=== PATIENT | female | born 1990 | race Caucasian/White ===

== ENCOUNTER 2023-07-23 18:52 | Emergency (ER) | payer OTHER, SELFPAY ==
[2023-07-23 19:23] VITALS: BP 130/93; PULSE 81; RESP 21; TEMP 37.3; O2SAT 100
--- NOTE | 2023-07-23 20:23 | ED.GENADUL_ITS ---
Discharge Plan Disposition Patient Disposition: Home Condition: Stable Discharge Details Clinical Impression: Pain at surgical site, Wound infection Primary Care Provider: Gaby,Local ED Provider: Donnie Blum Home Meds and New Rx's Prescriptions: New clindamycin HCl 150 mg capsule 450 mg PO TID 7 Days Qty: 63 0RF Discharge Instructions Instructions: Wound Infection (ED) Additional Instructions: call your athletics director's office Wednesday if you feel more ill or have severe worsening pain or high fevers return to the emergency department Medical Decision Making 32 yo female with no chronic medical problems comes in with cc of right foot pain. She had a mass removed from her right plantar foot 10 days ago by a athletics director in [facility], who comes in with chief complaint of pain and drainage out of the wound. Denies fevers, has been strictly non weight bearing with crutches since surgery per patient at recommendation of her athletics director. She appears well in no distress. She has a 3cm closed surgical wound on the mid plantar surface. She has no erythema or drainage currently, she states it was dark appearing discharge earlier. No leg swelling, full rom and intact sensation. I suspect she had a hematoma that drained but given the increased pain will treat for possible wound infection with clindamycin. Advised to call her athletics director's office Wednesday and return precautions given Differential Diagnosis Differential Diagnosis: hematoma, wound infection HPI General Mode of arrival: ambulatory . Date/Time Provider Initiated Documentation: 07/23/23 19:16 . Limitations to Documentation: no limitations . Information obtained by: patient . History of Present Illness 32 year old F presents to the emergency department with the chief complaint of right surgical site pain, described as moderate, Patient started experiencing this day(s) (3) and it has been constant. No relieving factors improve symptom(s), No exacerbating factors reported . Patient notes no other symptoms.. Patient did receive the following treatments prior to arrival, none Related Data Home Medications Medication Instructions Recorded Confirmed clindamycin HCl 150 mg capsule 450 mg PO TID 7 days #63 caps 07/23/23 Previous Rx's Medication Instructions Recorded clindamycin HCl 150 mg capsule 450 mg PO TID 7 days #63 caps 07/23/23 Allergies Allergy/AdvReac Type Severity Reaction Status Date / Time Penicillins AdvReac Severe Skin Rash Unverified 07/23/23 19:22 General Stated Complaint: Orthopedic MINDY: 4 Review of Systems All systems reviewed & are unremarkable except as noted in HPI and below Constitutional Constitutional: Denies chills, Denies fever(s) and Denies weakness Cardiovascular Cardiovascular: Denies chest pain and Denies dyspnea Respiratory Respiratory: Denies cough and Denies dyspnea Gastrointestinal Gastrointestinal: Denies abdominal pain, Denies nausea and Denies vomiting Neurologic Neurologic: Denies weakness PFSH All Active Problems (Updated 07/23/23 @ 20:33 by Donnie Blum MD) Pain at surgical site (Acute) Wound infection (Acute) Social History Smoking/Tobacco Use Status: Never Smoking risk assessment performed?: Yes Alcohol Intake: never Drug use: Never Substance use type: does not use Housing: house Do you feel safe at home: Yes Do you feel safe in your relationship?: Yes Exam Const General: no acute distress Orientation: alert HENMT Head: normal to inspection Ears: external ears normal General nose exam: external nose normal Mouth: moist mucous membranes Eyes General: appearance normal, both eyes and all related structures Neck Neck: normal visual inspection Resp Effort & Inspection: normal respiratory effort and able to speak in complete sentences Cardio Rate: regular rate Skin General skin exam: elasticity normal Neuro General: patient alert and patient oriented x3 Extrem General: full ROM and capillary refill normal Psych Mental Status: mental status grossly normal Course Vital Signs Vital signs: Vital Signs Temperature 37.3 C 07/23/23 19:23 Pulse 81 07/23/23 19:23 Respiratory Rate 21 07/23/23 19:23 Blood Pressure 130/93 H 07/23/23 19:23 Pulse Oximetry 100 07/23/23 19:23 Temperature 37.3 C 07/23/23 19:23 Temperature Source Temporal Artery Scan 07/23/23 19:23 Pulse 81 07/23/23 19:23 Respiratory Rate 21 07/23/23 19:23 Blood Pressure 130/93 H 07/23/23 19:23 Blood Pressure Position Sitting 07/23/23 19:23 Pulse Oximetry 100 07/23/23 19:23 Oxygen Delivery Method Room Air 07/23/23 19:23 Oxygen Flow Rate 0 07/23/23 19:23 Pain Level 6 07/23/23 19:23
[2023-07-23] MEDS: Fluconazole 150 MG TAB PO (20:32)
[2023-07-23] MEDS: Clindamycin 150 MG CAP 450 MG PO (20:32)
[2023-07-23 20:42] VITALS: BP 122/79; PULSE 86; RESP 17; TEMP 36.8; O2SAT 99
== END 2023-07-23 20:43 | disposition home or self-care (01) ==
PROVIDERS: Emergency Provider Emergency Medicine
DX: G89.18 Other acute postprocedural pain (principal); L08.9 Local infection of the skin and subcutaneous tissue, unspecified
CPT/HCPCS: 99283; 99284

== ENCOUNTER 2024-08-15 10:28 | Outpatient (REF) | payer BC, SELFPAY | END 2024-08-15 10:29 | disposition home or self-care (01) | LOC: LBN 10:28 | PROVIDERS: Visit Provider Physician Assistant | DX: J02.9 Acute pharyngitis, unspecified (principal); R68.89 Other general symptoms and signs; B34.9 Viral infection, unspecified | CPT/HCPCS: 87070 ==

== ENCOUNTER 2025-02-12 15:49 | Outpatient (CLI) | payer SELFPAY ==
--- NOTE | 2025-02-12 15:45 | RT.EKG_ITS ---
APPROVED REPORT Exam: Resting ECG Reason for Exam: Chest discomfort Patient Location: O HR:87 bpm ECG Measurements Heart Rate 87 AXIS NH 136 P 77 QRSd 97 QRS 75 QT 360 T 35 QTc 433 Conclusion Sinus rhythm...normal P axis, V-rate 50- 99 Probable left atrial enlargement...P >50mS, <-0.10mV V1 Otherwise normal ECG
== END 2025-02-12 15:50 | disposition home or self-care (01) ==
LOC: DI.CM 15:49
PROVIDERS: Visit Provider Nurse Practitioner Family
DX: R07.89 Other chest pain (principal)
CPT/HCPCS: 93010

== ENCOUNTER 2025-04-19 18:19 | Outpatient (REF) | payer OTHER, SELFPAY | END 2025-04-19 18:20 | disposition home or self-care (01) | LOC: LBN 18:19 | PROVIDERS: PCP Nurse Practitioner Family; Visit Provider Physician Assistant | DX: L02.91 Cutaneous abscess, unspecified (principal) | CPT/HCPCS: 87070; 87205 ==

== ENCOUNTER 2025-04-27 09:27 | Outpatient (CLI) | payer OTHER, SELFPAY ==
[2025-04-28 02:46] LABS: HBs Antibody, Quant 471.4 mIU/mL (See Note); Hepatitis B Surface Ab Positive (See Note)
[2025-04-30 11:08] LABS: Measles IgG Antibody Positive (See Note); Mumps Antibody IgG Positive (See Note); Rubella IgG Ab (UVM) Positive (See Note)
[2025-04-30 11:10] LABS: Varicella IgG Antibody Positive (See Note)
[2025-04-30 15:03] LABS: TB Interpretation Negative (Negative); TB1 Ag minus Nil 0.04 IU/mL; TB2 Ag minus Nil 0.01 IU/mL
== END 2025-04-27 09:28 | disposition home or self-care (01) ==
LOC: LBO 09:28
PROVIDERS: PCP Nurse Practitioner Family; Visit Provider Nurse Practitioner Family
DX: Z00.00 Encounter for general adult medical examination without abnormal findings (principal)
CPT/HCPCS: 36415; 86706; 86787; 86480; 86735; 86762; 86765

== ENCOUNTER 2025-05-18 01:13 | Outpatient (CLI) | payer OTHER, SELFPAY ==
[2025-05-18 12:52] LABS: HCT 44.6 % (36.0-46.0); HGB 14.2 g/dL (11.2-15.7); MCH 28.6 pg (27.0-33.0); MCHC 31.8 % (32.0-36.0); MCV 90 fL (80-95); MPV 11.6 fL (8.0-11.0); Platelet Count 171 10^3/uL (130-400); RBC 4.97 10^6/uL (3.93-5.22); RDW 12.7 % (11.7-14.6); RDW-SD 42.1 fL; WBC 6.79 10^3/uL (4.4-10.8)
[2025-05-18 13:03] LABS: ALT 28 U/L (14-59); AST 21 U/L (15-37); Alkaline Phosphatase 132 U/L (46-116); Anion Gap 9.1 mmol/L (3-11); BUN 18 mg/dL (7-18); Bilirubin, Total 0.4 mg/dL (0.2-1.0); CO2 27.9 mmol/L (21.0-32.0); CREATININE 1.2 mg/dL (0.55-1.02); Calculated LDL 90 mg/dL (<100); Chloride 106 mmol/L (98-107); Cholesterol 157 mg/dL (<200); Glucose 89 mg/dL (74-106); HDL Cholesterol 59 mg/dL (>or=50); Potassium 4.3 mmol/L (3.5-5.1); Sodium 143 mmol/L (136-145); Total Protein 7.7 g/dL (6.4-8.2); Triglyceride 40 mg/dL (<150)
== END 2025-05-18 01:14 | disposition home or self-care (01) ==
LOC: LOS 01:13
PROVIDERS: PCP Nurse Practitioner Family; Visit Provider Nurse Practitioner Family
DX: Z00.00 Encounter for general adult medical examination without abnormal findings (principal); R00.0 Tachycardia, unspecified; F17.200 Nicotine dependence, unspecified, uncomplicated
CPT/HCPCS: 36415; 80053; 80061; 85027; 84443

== ENCOUNTER 2025-05-18 08:58 | Outpatient (RCR) | payer OTHER, SELFPAY ==
--- NOTE | 2025-05-22 08:53 | W.HOLTRPT ---
Date of service: 05/22/25 Time of Service: 08:53 Holter Monitor Report Referring Provider:: Christina Hatch Indications:: Tachycardia Holter Monitor Note: Patient is a 48-hour Holter monitor Rhythm throughout was sinus with an average heart rate of 85. Minimum was 45, maximum 146 Very rare isolated atrial and ventricular ectopic beats There was no atrial fibrillation, no SVT, no high-grade AV block, no pauses greater than 3 seconds Patient's symptoms correlated to sinus rhythm, rate 87, rate 100
== END 2025-05-28 23:59 | disposition home or self-care (01) ==
LOC: CARDOPNVT 08:58
PROVIDERS: PCP Nurse Practitioner Family; Visit Provider Internal Medicine Cardiovascular Disease
DX: R00.0 Tachycardia, unspecified (principal); R07.9 Chest pain, unspecified
CPT/HCPCS: 93225; 93226

== ENCOUNTER 2025-06-05 08:50 | Outpatient (CLI) | payer OTHER, SELFPAY ==
--- NOTE | 2025-06-05 07:30 | DI.US_ITS ---
APPROVED REPORT EXAM: Comprehensive 2D, Doppler, and color-flow Echocardiogram Patient Location: Out-Patient Cleaning Technician: Felisha Parr RDCS (AE) Indications: Tachycardia, HX of drug use Other Information Study Quality: Adequate Conclusion Normal left ventricular wall thickness and chamber size. Ejection fraction is 60%. Wall motion is normal Normal right ventricular size and function Both atria are normal in size There is no structural or hemodynamically significant valvular disease Wall motion Left Ventricle The left ventricle is normal size. The left ventricular systolic function is normal. The left ventricular ejection fraction is within the normal range. There is normal left ventricular wall thickness. There is normal LV segmental wall motion. There is no ventricular septal defect visualized. LVEF is 60%. Right Ventricle The right ventricle is normal size. The right ventricular systolic function is normal. Atria The left atrium size is normal. The right atrium size is normal. The interatrial septum is intact with no evidence for an atrial septal defect. Aortic Valve The aortic valve is normal in structure. Aortic valve is trileaflet. There is no aortic valvular stenosis. No aortic regurgitation is present. Mitral Valve The mitral valve is normal in structure. No evidence of mitral valve stenosis. Trace mitral regurgitation. Tricuspid Valve The tricuspid valve is normal in structure. There is no tricuspid valve stenosis. Trace tricuspid regurgitation. Unable to assess PA pressure. Pulmonic Valve The pulmonary valve is normal in structure. There is no pulmonic valvular stenosis. There is no pulmonic valvular regurgitation. Great Vessels The aortic root is normal in size. The ascending aorta is normal in size. Aortic arch is normal in caliber. The IVC collapses <50% with inspiration. Pericardium There is no pericardial effusion. 2D Dimensions IVSD d PLAX 0.70 cm F: 0.6-1.0 Ao Root d 2.55 cm F: 2.7 - 3.3 LVPW d PLAX 0.70 cm F: 0.6 - 1.0 Ao Asc Diam d 2.68 cm F: 2.3 - 3.1 LVID d PLAX 4.72 cm F: 3.8 - 5.2 LVDs 3.23 cm F: 2.2 - 3.5 LV EF Teichholz 59.3 % FS 31.47 % LV EDV (Teich) 103.1 mL LV ESV (Teich) 41.9 mL M-Mode TAPSE 2.34 cm (M/F) >1.7 Auto EF LV EDV A4C 95.6 mL LV EDV A2C 88.9 mL LV EDV BP 93.3 mL LV ESV A4C 40.6 mL LV ESV A2C 38.5 mL LV ESV BP 38.7 mL LVEF(%) A4C 57.5 % LVEF(%) A2C 56.7 % LVEF(%) BP 58.5 % LV SV A4C 55.0 ml LV SV A2C 50.4 ml LV SV BP 54.6 ml LV CO A4C 3.5 L/min LV CO A2C 3.4 L/min LV CO BP 3.5 L/min HR A4C 63.58 BPM HR A2C 68.05 BPM LV EDV Index (BP) LA Volume LA Length A4C 4.7 cm LA Length A2C 4.5 cm LA Area A4C s 12.85 cm2 LA Area A2C s 12.22 cm2 LA Vol A4C A-L 30.01 mL LA Vol A2C A-L 28.47 mL LA Vol Biplane A-L 29.9 mL LA Vol/BSA A4C A-L LA Vol/BSA A2C A-L LA Vol/BSA BP A-L 15.8 mL/m2 LA Vol A4C MOD 27.7 mL LA Vol A2C MOD 27.7 mL LA Vol BP MOD 28.1 mL RA Volume RA Area A4C 11.1 cm2 RA ESV A4C (A-L) 24.2mL RA Vol/BSA A4C A-L RA Length A4C 4.4 cm RA ESV A4C (MOD) 23.0mL LV Diastology MV E' medial 0.110 (>0.07 m/s) MV E Vmax 1.11 (0.4-1.3 m/s) MV E/E' MED 10.12 (<14) MV A Vmax 0.65 (0.4-1.3 m/s) MV E' lateral 0.149 (>0.1 m/s) E/A Ratio 1.7 MV E/E' LAT 7.45 (<14) MV E' Average 0.129 m/s MV E/E'(average) 8.58 Aortic Valve AoV Vmax 1.45 m/s LVOT Vmax 1.32 m/s AoV Peak Grad 8.4 mmHg LVOT Peak Grad 6.9 mmHg AoV Area (Vmax) 2.59 cm2 LVOT VTI 0.285 m AoV VTI 0.315 m LVOT Mean Grad 4.3 mmHg AoV Mean Davi. 1.03 m/s LVOT SV 81.06 mL AoV Mean Grad 4.9 mmHg LVOT Diam s 1.90 cm AoV Area (VTI) 2.58 cm2 AV Regurg Peak Gr. 8.36 mmHg Velocity Ratio 0.91 Mitral Valve MV DT 202 (160-240 msec) MV Vmax TIPS 0.99 m/s MV Mean Grad 1.7 (<2mmHg) MV VTI 0.283 m Pulmonary Valve PV Vmax 0.95 (0.5-1.5 m/s) RVOT Vmax 0.83 m/s PV Peak Grad 3.6 mmHg RVOT Peak Gr. 2.8 mmHg PV Mean Davi 0.70 m/s RVOT VTI 0.206 m PV Mean Grad 2.2 mmHg RVOT Mean Gr. 1.7 mmHg Tricuspid Valve TV S' 0.13 m/s
== END 2025-06-05 09:10 ==
LOC: DI 08:50
PROVIDERS: PCP Nurse Practitioner Family; Visit Provider Nurse Practitioner Family
DX: R00.0 Tachycardia, unspecified (principal)
CPT/HCPCS: 93306

== ENCOUNTER 2025-08-20 07:33 | Outpatient (CLI) | payer OTHER, SELFPAY ==
[2025-08-20 15:48] LABS: ALT 23 U/L (14-59); AST 19 U/L (15-37); Albumin 4.0 g/dL (3.4-5.0); Alkaline Phosphatase 128 U/L (46-116); Anion Gap 5.8 mmol/L (3-11); BUN 9 mg/dL (7-18); Bilirubin, Total 0.4 mg/dL (0.2-1.0); CO2 30.2 mmol/L (21.0-32.0); Calcium 9.1 mg/dL (8.5-10.1); Chloride 105 mmol/L (98-107); Estimated GFR 76.29 (mL/min/1.73m2); Glucose 100 mg/dL (74-106); Potassium 4.2 mmol/L (3.5-5.1); Sodium 141 mmol/L (136-145); Total Protein 7.6 g/dL (6.4-8.2)
== END 2025-08-20 07:34 | disposition home or self-care (01) ==
LOC: LBO 07:33
PROVIDERS: PCP Nurse Practitioner Family; Visit Provider Nurse Practitioner Family
DX: R79.89 Other specified abnormal findings of blood chemistry (principal)
CPT/HCPCS: 36415; 80053

== ENCOUNTER 2025-09-28 00:53 | Outpatient (CLI) | payer OTHER, SELFPAY ==
[2025-09-28 14:52] LABS: Abs Immature Grans 0.02 10^3/uL (0.0-0.06); HCT 44.6 % (36.0-46.0); HGB 14.7 g/dL (11.2-15.7); Immature Grans % 0.3 %; MCH 28.9 pg (27.0-33.0); MCHC 33.0 % (32.0-36.0); MCV 88 fL (80-95); MPV 11.3 fL (8.0-11.0); Platelet Count 194 10^3/uL (130-400); RBC 5.09 10^6/uL (3.93-5.22); RDW 12.7 % (11.7-14.6); RDW-SD 40.9 fL; WBC 7.99 10^3/uL (4.4-10.8)
[2025-09-28 14:53] LABS: ESR 2 mm/hr (0-20)
[2025-09-28 15:05] LABS: Iron 104 ug/dL (50-170); Total Iron Binding Capacity 287 ug/dL (250-450); Transferrin Sat 36 % (15-50)
[2025-09-28 15:34] LABS: Anion Gap 7.7 mmol/L (3-11); BUN 12 mg/dL (7-18); CO2 28.3 mmol/L (21.0-32.0); Calcium 9.4 mg/dL (8.5-10.1); Chloride 106 mmol/L (98-107); Glucose 90 mg/dL (74-106); Potassium 4.3 mmol/L (3.5-5.1); Sodium 142 mmol/L (136-145); Vitamin D 25 Total 30 ng/mL (30-100)
[2025-09-28 15:56] LABS: Uric Acid 4.3 mg/dL (2.6-6.0)
[2025-09-28 15:57] LABS: C-Reactive Protein < 0.50 mg/dL (<or=0.5)
== END 2025-09-28 00:54 | disposition home or self-care (01) ==
LOC: LOS 00:54
PROVIDERS: PCP Nurse Practitioner Family; Visit Provider Nurse Practitioner Family
DX: R74.8 Abnormal levels of other serum enzymes; N28.9 Disorder of kidney and ureter, unspecified
CPT/HCPCS: 36415; 80048; 82306; 82784; 83516; 85652; 83540; 83550; 83970; 84550; 85025; 86038; 86140; 86431

== ENCOUNTER → 2025-10-08 02:31 | Outpatient (CLI) | payer OTHER, SELFPAY ==
--- NOTE | 2025-10-08 07:30 | DI.RAD_ITS ---
Exam(s) XR LUMBAR SPINE COMPLETE EXAM: XR LUMBAR SPINE COMPLETE CLINICAL HISTORY: low back and hip painm54.50. TECHNIQUE: 2D digital imaging was performed. Five views. COMPARISON: No exams were available for comparison FINDINGS: BONES: No fracture or destructive lesion. Vertebral body heights are maintained. Minimal endplate osteophytes peer no facet hypertrophy identified . DISKS: Mild narrowing of the L5-S1 disc space. The remaining intervertebral disc spaces are maintained. ALIGNMENT: Lumbar spinal alignment is within normal limits. SOFT TISSUE: Normal. IMPRESSION: Mild disc space narrowing at L5-S1. DATA REPOSITORY: RADIATION DOSE DELIVERED:
--- NOTE | 2025-10-08 07:30 | DI.RAD_ITS ---
Exam(s) XR HIP PELVIS ADULT BL EXAM: XR HIP PELVIS ADULT BL CLINICAL HISTORY: bilateral hip pain,m25.551,m25.552,low back pain. TECHNIQUE: 2D digital imaging was performed. Three views. COMPARISON: No exams were available for comparison FINDINGS: BONES: No acute fracture is present. No bony destructive lesion is seen. JOINTS: No dislocation present. The hip joint spaces are maintained. The SI joints are unremarkable. There is some spurring with bony bridging at the superior aspect of the pubic symphysis. SOFT TISSUE: Normal. IMPRESSION: Unremarkable radiographs of the bilateral hips. Bony bridging at the superior aspect of the pubic symphysis. DATA REPOSITORY: RADIATION DOSE DELIVERED:
--- NOTE | 2025-10-08 07:30 | DI.RAD_ITS ---
Exam(s) XR SHOULDER LT COMPLETE 2+V EXAM: XR SHOULDER LT COMPLETE 2+V CLINICAL HISTORY: left shoulder pain,m25.512. TECHNIQUE: 2D digital imaging was performed. Four views. COMPARISON: No exams were available for comparison FINDINGS: BONES: No acute fracture is present. No bony destructive lesion is seen. JOINTS: No dislocation present. SOFT TISSUE: Normal. IMPRESSION: Unremarkable radiographs of the left shoulder. DATA REPOSITORY: RADIATION DOSE DELIVERED:
== END ==
LOC: DI 02:31
PROVIDERS: PCP Nurse Practitioner Family; Visit Provider Nurse Practitioner Family
DX: M51.372 Other intervertebral disc degeneration, lumbosacral region with discogenic back pain and lower extremity pain (principal); M25.551 Pain in right hip; M25.552 Pain in left hip; R74.8 Abnormal levels of other serum enzymes; M25.512 Pain in left shoulder
CPT/HCPCS: 73521; 72110; 73030